=== PATIENT | female | born 1990 | race Hispanic/Latino ===

== ENCOUNTER 2016-11-08 21:53 | Emergency (ER) | payer OTHER, SELFPAY | END 2016-11-08 22:48 | disposition home or self-care (01) | LOC: ERS 21:53 | DX: T24.212A Burn of second degree of left thigh, initial encounter (principal); T24.211A Burn of second degree of right thigh, initial encounter; L03.115 Cellulitis of right lower limb; F41.9 Anxiety disorder, unspecified; F17.210 Nicotine dependence, cigarettes, uncomplicated; X11.8XXA Contact with other hot tap-water, initial encounter | CPT/HCPCS: 99283 ==

== ENCOUNTER 2018-03-03 05:30 | Inpatient (IN) | payer OTHER ==
[2018-03-03 07:17] VITALS: BMI 36.0
[2018-03-03] MEDS ORDERED: Penicillin G Potassium 5 MILL.UNITS VIAL ONE (07:52)
[2018-03-03] MEDS ORDERED: Ibuprofen 800 MG TAB PO PRN (08:21)
[2018-03-03] MEDS ORDERED: Carboprost 250 MCG/ML AMP IM PRN (08:21)
[2018-03-03] MEDS ORDERED: HYDROcodone/Acetaminophen 5/325 mg Tablet PO PRN ×3 (08:21→21:18)
[2018-03-03] MEDS ORDERED: Methylergonovine 0.2 MG/ML VIAL IM PRN (08:21)
[2018-03-03] MEDS ORDERED: NS / Oxytocin 40 units/1000ml 1,000 ML IV PRN (08:21)
[2018-03-03] MEDS ORDERED: Diphenoxylate HCl/Atropine Tablet PO PRN (08:21)
[2018-03-03] MEDS ORDERED: Penicillin G Potassium 5 MILL.UNITS in Sodium Chloride 0.9% 100 ML IVPB SCH (08:21)
[2018-03-03] MEDS ORDERED: Butorphanol Tartrate 1 MG/ML VIAL SLOW IVP PRN (08:21)
[2018-03-03] MEDS ORDERED: Misoprostol 200 MCG TAB PR PRN (08:21)
[2018-03-03] MEDS ORDERED: NS w/ Oxytocin 10 units 500 ML IV SCH ×2 (08:21)
[2018-03-03] MEDS ORDERED: Ondansetron PF 4 MG/2 ML Vial IVP PRN ×3 (08:21→21:18)
[2018-03-03] MEDS ORDERED: Lidocaine 1% (PF) 30 ML VIAL SC PRN (08:21)
[2018-03-03] MEDS: Lactated Ringer's 1,000 ML IV SCH ×2 (10:56→15:56)
[2018-03-03 11:33] LABS: Hemoglobin 11.1 g/dL (12.0-16.0); Mean Corpuscular HGB CONC 32.1 g/dL (32.0-36.0); Mean Corpuscular Hemoglobin 27.8 pg (27.0-31.0); Mean Corpuscular Volume 86.3 fL (78.0-98.0); Platelet Count 161 thou/uL (130-400); RBC Distribution Width 12.2 % (11.5-14.5); Red Blood Cell (RBC) Count 4.02 mill/uL (4.20-5.40)
[2018-03-03 12:10] LABS: Syphilis Antibody Nonreactive (Nonreactive); Syphilis Antibody Index 0.05 S/CO (<1.00 Non-Reactive)
[2018-03-03 12:11] LABS: HBSAg Index 0.25 S/CO (0-0.99); Hep B Surf Ag Non-Reactive S/CO (NonReactive)
[2018-03-03] MEDS: Penicillin G 2.5 MILL.units 2.5 MILL.UNITS in Premix Bag 1 BAG IVPB SCH ×2 (12:25→16:30)
[2018-03-03] MEDS ORDERED: Fentanyl 4 mcg/Bup 0.1% Cadd 100 ML ONE (13:56)
[2018-03-03] MEDS ORDERED: Lidocaine 1.5%/Epinephrine 1:200,000 5 ML AMPUL IJ ONE ×2 (15:33→15:48)
[2018-03-03] MEDS ORDERED: ePHEDrine/0.9% NaCl/PF SYRINGE 50 mg/10 ml SLOW IVP PRN (16:03)
[2018-03-03] MEDS ORDERED: Naloxone HCl 0.4 mg/ml Vial IVP PRN ×2 (16:03)
[2018-03-03] MEDS ORDERED: Acetaminophen 325 MG TAB PO PRN (16:03)
[2018-03-03] MEDS ORDERED: Promethazine HCl 25 MG/ML VIAL IM PRN (16:03)
[2018-03-03] MEDS ORDERED: Eucerin (Mineral Oil/Petrolatum,White) 30 gm Jar TOP PRN (16:03)
[2018-03-03] MEDS ORDERED: Lactated Ringer's 500 ML IV PRN (16:03)
[2018-03-03] MEDS ORDERED: diphenhydrAMINE 50 MG/ML VIAL IVP PRN (16:03)
[2018-03-03] MEDS ORDERED: Fentanyl 4 mcg/Bupivacaine 0.1% Cassette 100 ML EPIDURAL SCH (16:15)
[2018-03-03] MEDS ORDERED: Communication Order-Pharmacy FS SCH (16:15)
[2018-03-03] MEDS ORDERED: Bisacodyl 10 MG SUPP PR PRN (21:18)
[2018-03-03] MEDS ORDERED: diphenhydrAMINE 25 MG CAP PO PRN (21:18)
[2018-03-03] MEDS ORDERED: Milk Of Magnesia 30 ML UDCUP PO PRN (21:18)
[2018-03-03] MEDS ORDERED: Preparation H Ointment 28 GM TUBE PR PRN (21:18)
[2018-03-03] MEDS ORDERED: NS / Oxytocin 40 units/1000ml 1,000 ML IV SCH (21:18)
[2018-03-03] MEDS ORDERED: Benzocaine/Menthol 20-0.5% 60 ML CAN TOP PRN (21:18)
[2018-03-03] MEDS: Ibuprofen 800 MG TAB PO SCH (21:58)
[2018-03-03] MEDS: Docusate Calcium (SURFAK) 240 MG CAP PO SCH (22:02)
[2018-03-04 05:45] LABS: Hemoglobin 10.9 g/dL (12.0-16.0); Mean Corpuscular HGB CONC 31.9 g/dL (32.0-36.0); Mean Corpuscular Hemoglobin 27.7 pg (27.0-31.0); Mean Corpuscular Volume 86.8 fL (78.0-98.0); Mean Platelet Volume 8.4 fL (7.4-10.4); Platelet Count 149 thou/uL (130-400); Red Blood Cell (RBC) Count 3.93 mill/uL (4.20-5.40); White Blood Cell (WBC) Count 12.3 thou/uL (4.8-10.8)
[2018-03-04] MEDS: Ibuprofen 800 MG TAB PO SCH ×2 (06:04→14:26)
[2018-03-04] MEDS: Penicillin G 2.5 MILL.units 2.5 MILL.UNITS in Premix Bag 1 BAG IVPB SCH (07:36)
[2018-03-04] MEDS: Ferrous Sulfate 325 MG TAB PO SCH ×2 (07:49→17:13)
[2018-03-04] MEDS ORDERED: Prenatal Vitamin 1 TAB PO SCH (09:00)
[2018-03-04] MEDS: Docusate Calcium (SURFAK) 240 MG CAP PO SCH (09:28)
[2018-03-04 12:59] VITALS: BP 111/71; TEMP 97.9
== END 2018-03-04 19:29 | disposition home or self-care (01) | DRG 807 ==
LOC: L&D 06:46 → 3SW 20:39
PROVIDERS: ADMIT Family Medicine; ATTEND Family Medicine
PROC: 10907ZC Drainage of Amniotic Fluid, Therapeutic from Products of Conception, Via Natural or Artificial Opening (ICD-10-PCS; principal; 2018-03-03)
PROC: 10E0XZZ Delivery of Products of Conception, External Approach (ICD-10-PCS; 2018-03-03)
DX: O99.824 Streptococcus B carrier state complicating childbirth (principal); Z37.0 Single live birth; Z3A.39 39 weeks gestation of pregnancy; O69.81X0 Labor and delivery complicated by cord around neck, without compression, not applicable or unspecified; Z91.041 Radiographic dye allergy status
CPT/HCPCS: 36415; 51702; 85027; 86780; 86850; 86900; 86901; 87340; J2540; J3490